=== PATIENT | male | born 1975 | race Caucasian/White ===

== ENCOUNTER 2023-03-28 21:00 | Emergency (ER) | payer OTHER ==
[~2023-03-28] VITALS: Ht 185.4 cm; Wt 145.0 kg
[2023-03-28 21:06] VITALS: BP 174/80; TEMP 98.4; O2SAT 98
[2023-03-28] MEDS ORDERED: KETOROLAC 30MG/ML VIAL IM ONE (22:00)
[2023-03-28] MEDS ORDERED: CYCLOBENZAPRINE 10MG TABLET PO ONE (22:00)
[2023-03-28] MEDS ORDERED: ACETAMINOPHEN 325MG TABLET PO ONE (23:45)
[2023-03-28] MEDS ORDERED: NAPR-1176 MT (23:59)
[2023-03-28] MEDS ORDERED: LIDO700A15 TP (23:59)
[2023-03-29 01:09] VITALS: PULSE 75; RESP 16
== END 2023-03-29 01:20 | disposition home or self-care (01) ==
LOC: ER 21:00
DX: M54.40 Lumbago with sciatica, unspecified side (principal); I10 Essential (primary) hypertension; Z88.0 Allergy status to penicillin
CPT/HCPCS: 99283; 96372; J1885